=== PATIENT | male | born 2005 | race Two or more races ===

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

== ENCOUNTER 2024-05-21 08:59 | Emergency (ER) | payer MEDICAID ==
[~2024-05-21] VITALS: Ht 162.6 cm; Wt 56.2 kg
[~2024-05-21 08:59] MED LIST: CYCL-837 PO; ERY05OO OP; IBUP-1456 PO
[2024-05-21 09:32] VITALS: BP 148/86; PULSE 68; RESP 16; TEMP 99.7; O2SAT 97
[2024-05-21] MEDS: TETRACAINE HCL 0.5% OPTH(EYE) SOLN 4ML LEFTEYE ONE (09:58)
[2024-05-21] MEDS: FLUORESCEIN SOD OPTH TEST STRIP LEFTEYE ONE (09:58)
[2024-05-21] MEDS ORDERED: ERY05OO OP (10:38)
[2024-05-21] MEDS ORDERED: AUG875T PO (10:38)
[2024-05-21] MEDS ORDERED: KETO0.5S31 LEFTEYE (10:43)
[2024-05-21] MEDS ORDERED: DexAMETHasone SOD PHOS 10MG/1ML VIAL INJ IM ONE (10:45)
== END 2024-05-21 10:45 | disposition home or self-care (01) ==
LOC: ER 08:59
DX: H10.32 Unspecified acute conjunctivitis, left eye (principal); F12.10 Cannabis abuse, uncomplicated